=== PATIENT | female | born 1975 ===

== ENCOUNTER 2016-12-18 16:04 | Emergency (ER) | payer OTHER ==
[2016-12-18 16:22] VITALS: BP 168/110; RESP 16; O2SAT 98
[2016-12-18] MEDS ORDERED: Oxycodone/Acetaminophen 5/325 mg Tab PO STA (16:33)
--- NOTE | 2016-12-18 16:37 | ED PDOC ---
Arrival/HPI - General Historian: Patient - General Chief Complaint: Dental Pain Time Seen by Provider: 12/18/16 16:23 - History of Present Illness Narrative History of Present Illness (Text): 12/18/16 16:34 41yo female with no PMHx who present with complaint of left sided upper toothache x 2days. States swelling started today. She notes that she had root canal on the same tooth a year ago. States she couldn't get appointment with her Dentist today. Denies fever, chills, any other complaint. (Hardeep Deluna) Past Medical History - Provider Review Nursing Documentation Reviewed: Yes - Infectious Disease Hx of Infectious Diseases: None - Reproductive Menopause: No - Cardiac Hx Hypertension: Yes - Psychiatric Hx Substance Use: No Family/Social History - Physician Review Nursing Documentation Reviewed: Yes Family/Social History: Unknown Family HX Smoking Status: Unknown If Ever Smoked Hx Alcohol Use: No Hx Substance Use: No Allergies/Home Meds Allergies/Adverse Reactions: Allergies No Known Allergies Allergy (Verified 12/18/16 16:23) Review of Systems - Physician Review All systems were reviewed & negative as marked: Yes - Review of Systems Constitutional: Normal Eyes: Normal ENT: Other (Toothache) Respiratory: Normal Cardiovascular: Normal Gastrointestinal: Normal Genitourinary Female: Normal Musculoskeletal: Normal Skin: Normal Neurological: Normal Endocrine: Normal Hemo/Lymphatic: Normal Psychiatric: Normal Physical Exam Vital Signs Reviewed: Yes Temperature: Afebrile Blood Pressure: Hypertensive Pulse: Regular Respiratory Rate: Normal Appearance: Positive for: Well-Appearing, Non-Toxic, Comfortable Pain Distress: None Mental Status: Positive for: Alert and Oriented X 3 - Systems Exam Head: Present: Atraumatic, Normocephalic Pupils: Present: PERRL Extroacular Muscles: Present: EOMI Conjunctiva: Present: Normal Mouth: Present: Moist Mucous Membranes. No: Normal Teeth (Left upper molar tooth noted with surrounding gingival swelling and overlaying swelling of the cheek) Neck: Present: Normal Range of Motion Respiratory/Chest: Present: Clear to Auscultation, Good Air Exchange. No: Respiratory Distress, Accessory Muscle Use Cardiovascular: Present: Regular Rate and Rhythm, Normal S1, S2. No: Murmurs Abdomen: Present: Normal Bowel Sounds. No: Tenderness, Distention, Peritoneal Signs Back: Present: Normal Inspection Upper Extremity: Present: Normal Inspection. No: Cyanosis, Edema Lower Extremity: Present: Normal Inspection. No: Edema Neurological: Present: GCS=15, CN II-XII Intact, Speech Normal Skin: Present: Warm, Dry, Normal Color. No: Rashes Psychiatric: Present: Alert, Oriented x 3, Normal Insight, Normal Concentration Vital Signs Temp Pulse Resp BP Pulse Ox 12/18/16 16:52 16 98 12/18/16 16:36 99.0 F 99 H 16 98 12/18/16 16:17 99 F 90 16 168/110 H 98 Medical Decision Making ED Course and Treatment: 12/18/16 16:43 I was available for consultation during PA evaluation. The chart was reviewed by me, and I agree with disposition. The documented history was done by the physician securities sales associate. The documented physical exam was done by the physician securities sales associate. The documented procedures were done by the physician securities sales associate. ( Elias Magana) 12/18/16 23:32 Pt in ED for stated history. Her VS improved in ED s/p medication. She was DC home with amoxicillin, Percocet and Ibuprofen. she have a Dentist and was referred to her Dentist. (Hardeep Deluna) - Medication Orders Current Medication Orders: Discontinued Medications Amoxicillin (Amoxil 500 Mg Cap) 500 mg PO STAT STA PRN Reason: Protocol Stop: 12/18/16 16:34 Last Admin: 12/18/16 16:50 Dose: 500 mg Ketorolac Tromethamine (Toradol) 60 mg IM STAT STA Stop: 12/18/16 16:34 Last Admin: 12/18/16 16:50 Dose: 60 mg Oxycodone/Acetaminophen (Percocet 5/325 Mg Tab) 1 tab PO STAT STA Stop: 12/18/16 16:34 Last Admin: 12/18/16 16:50 Dose: 1 tab Disposition/Present on Arrival - Present on Arrival Any Indicators Present on Arrival: No History of DVT/PE: No History of Uncontrolled Diabetes: No Urinary Catheter: No History of Decub. Ulcer: No History Surgical Site Infection Following: None - Disposition Have Diagnosis and Disposition been Completed?: Yes Disposition Time: 16:40 Patient Plan: Discharge - Disposition Diagnosis: Dental abscess Disposition: HOME/ ROUTINE Condition: STABLE Discharge Instructions (ExitCare): Dental Abscess (ED) Additional Instructions: Follow up with a Dentist Return to ED for any new or worsening symptoms Prescriptions: Amoxicillin 500 mg PO TID #21 tab Ibuprofen [Motrin Tab] 600 mg PO Q6 #20 tab oxyCODONE/Acetaminophen [Percocet 5/325 mg Tab] 1 tab PO Q6 #7 tab Referrals: Rico Lara DMD [Staff Provider] - Follow up with primary
[2016-12-18 16:40] VITALS: PULSE 99; TEMP 99
== END 2016-12-18 16:52 | disposition home or self-care (01) ==
LOC: ED 16:04
DX: K04.7 Periapical abscess without sinus (principal)
CPT/HCPCS: 96372; 99282; J1885

== ENCOUNTER 2017-06-06 13:17 | Emergency (ER) | payer MEDICAID ==
[2017-06-06 13:29] VITALS: BMI 27.8
[2017-06-06 14:28] LABS: URINE BILIRUBIN NEGATIVE (NEGATIVE); URINE BLOOD LARGE (NEGATIVE); URINE GLUCOSE (UA) NEGATIVE (NEGATIVE); URINE KETONE NEGATIVE (NEGATIVE); URINE LEUKOCYTE ESTERASE SMALL Leu/uL (NEGATIVE); URINE PROTEIN 100 mg/dL (<30 mg/dL); URINE UROBILINOGEN 0.2 E.U./dL (<1 E.U./dL)
[2017-06-06 14:36] LABS: URINE APPEARANCE SLIGHT-CLOUDY (CLEAR); URINE COLOR DARK YELLOW (YELLOW)
[2017-06-06 14:37] LABS: URINE AMORPHOUS SEDIMENT SMALL; URINE BACTERIA TRACE (NEG); URINE RBC TNTC /hpf (0-2)
[2017-06-06] MEDS ORDERED: cefTRIAXone (Rocephin) 250 mg Inj IM STA (15:32)
--- NOTE | 2017-06-06 15:35 | ED PDOC ---
Arrival/HPI - General Chief Complaint: Abdominal Pain Time Seen by Provider: 06/06/17 13:59 Historian: Patient - History of Present Illness Narrative History of Present Illness (Text): 06/06/17 18:46 Patient complains of 2 week history of constant nonradiating R suprapubic pain worse during intercourse. Patient states that she had an IUD placed 1 week ago by her SOCIAL SERVICE ASSISTANT, since then has not been sexually active, reports that she is having vaginal bleeding after IUD insertion, which she was told is normal. Otherwise: ( -) nauea / vomiting, (-) diarrhea, (-) urinary symptoms, (-) fever, (-) vaginal d/c, (-) melena, (-) hematochezia. Has no history of prior abdominal surgery. PMD Santosh Past Medical History - Provider Review Nursing Documentation Reviewed: Yes - Infectious Disease Hx of Infectious Diseases: None - Cardiac Hx Hypertension: Yes - Psychiatric Hx Substance Use: No - Surgical History Other/Comment: IUD placement - Anesthesia Hx Anesthesia: No Family/Social History - Physician Review Nursing Documentation Reviewed: Yes Family/Social History: Unknown Family HX Smoking Status: Unknown If Ever Smoked Hx Alcohol Use: No Hx Substance Use: No Allergies/Home Meds Allergies/Adverse Reactions: Allergies No Known Allergies Allergy (Verified 06/06/17 13:28) Review of Systems - Review of Systems Constitutional: Normal. absent: Fatigue, Weight Change, Fevers Respiratory: Normal. absent: SOB, Cough, Sputum Cardiovascular: Normal. absent: Chest Pain, Palpitations, Edema Gastrointestinal: Normal, Abdominal Pain, Stool Changes (for the past 3 months having loose stools). absent: Constipation, Nausea, Vomiting, Appetite Changes Genitourinary Female: Normal, Vaginal Bleeding. absent: Dysuria, Frequency, Hematuria, Vaginal Discharge Skin: Normal. absent: Rash, Pruritis, Skin Lesions Physical Exam - Physical Exam Narrative Physical Exam (Text): 06/06/17 18:50 GENERAL APPEARANCE: Patient is awake, alert, oriented x 3, in no acute distress. SKIN: Warm, dry; (-) cyanosis. EYES: (-) conjunctival pallor, (-) scleral icterus. ENMT: Mucous membranes moist. NECK: (-) tenderness, (-) stiffness, (-) lymphadenopathy. CHEST AND RESPIRATORY: (-) rales, (-) rhonchi, (-) wheezes; breath sounds equal bilaterally. HEART AND CARDIOVASCULAR: (-) irregularity; (-) murmur, (-) gallop. ABDOMEN AND GI: (-) distention. Bowel sounds active; (+) minimal tenderness in the R pelvic area, (-) guarding, (-) rebound, (-) palpable masses, (-) CVA tenderness. PELVIC: normal external genitalia, (-) vaginal discharge, (+) mild vaginal bleeding from closed cervical os with (+) string of IUD noted to be in place, (- ) CMT tenderness, (-) pelvic tenderness, (+) mild R adnexal tenderness, (-) mass. A female RN, was present during the entire exam. EXTREMITIES: (-) deformity, (-) edema, (+) distal pulses. NEURO AND PSYCH: Mental status as above; (-) focal findings. Vital Signs Temp Pulse Resp BP Pulse Ox 06/06/17 15:59 98 F 75 20 122/75 100 06/06/17 15:00 78 18 138/75 99 06/06/17 13:31 98.0 F 84 17 140/83 99 Medical Decision Making ED Course and Treatment: 06/06/17 18:53 42 yo F s/p IUD placement 1 week ago, c/o 2 week history of constant nonradiating R suprapubic pain worse during intercourse. Based on history and exam, patient likely has PID. Plan : - UA - Urine cx - Uhcg - Rocephin IM 250 mg Uhcg (-). UA shows evidence of possible mild UTI, cx sent and pending. Patient given Rx for doxycycline, advised that plan will be to wait for urine cx, prior to giving any further antibiotics at this time as the UA may be contaminated. Advised to follow up with coupon and bond collection clerk in 1-2 days without fail. Advised to take medication as prescribed. Return to the emergency room at any time for any new or worsening symptoms. Patient states she fully agrees with and understands discharge instructions. States that she agrees with the plan and disposition. Verbalized and repeated discharge instructions and plan. I have given the patient opportunity to ask any additional questions. - Lab Interpretations Lab Results: Lab Results 06/06/17 14:22: Urine Color Dark yellow, Urine Appearance Slight-cloudy, Urine pH 7.0, Ur Specific [place] 1.020, Urine Protein 100 H, Urine Glucose (UA) Negative, Urine Ketones Negative, Urine Blood Large H, Urine Nitrate Negative, Urine Bilirubin Negative, Urine Urobilinogen 0.2, Ur Leukocyte Esterase Small H , Urine RBC Tntc, Urine WBC 5 - 10, Ur Epithelial Cells 3 - 4, Amorphous Sediment Small, Urine Bacteria Trace - Medication Orders Current Medication Orders: Discontinued Medications Ceftriaxone Sodium (Rocephin) 250 mg IM STAT STA PRN Reason: Protocol Stop: 06/06/17 15:33 Last Admin: 06/06/17 15:45 Dose: 250 mg IM Administration Charges Document 06/06/17 15:45 GMI (Rec: 06/06/17 15:46 GMI [id number]) Injection Site MAR Injection Site Right Gluteus Adi Charges for Administration # of IM Administrations 1 - PA / PROTECTION OFFICER / Resident Statement / has reviewed & agrees with the documentation as recorded. Disposition/Present on Arrival - Present on Arrival Any Indicators Present on Arrival: No History of DVT/PE: No History of Uncontrolled Diabetes: No Urinary Catheter: No History of Decub. Ulcer: No History Surgical Site Infection Following: None - Disposition Have Diagnosis and Disposition been Completed?: Yes Diagnosis: PID (acute pelvic inflammatory disease) Disposition: HOME/ ROUTINE Disposition Time: 15:33 Patient Plan: Discharge Condition: STABLE Discharge Instructions (ExitCare): Pelvic Inflammatory Disease (ED) Print Language: BELGIAN Additional Instructions: Thank you for letting us take care of you today. You were treated for PID. The emergency medical care you received today was directed at your acute symptoms. If you were prescribed any medication, please fill it and take as directed. It may take several days for your symptoms to resolve. Return to the Emergency Department if your symptoms worsen, do not improve, or if you have any other problems. Please contact your coupon and bond collection clerk doctor in 2 days for re-evaluation and follow up. Bring any paperwork you were given at discharge with you along with any medications you are taking to your follow up visit. Our treatment cannot replace ongoing medical care by a primary care provider (PCP) outside of the emergency department. Thank you for allowing the [facility] team to be part of your care today. If you had a urine, or wound culture: It will take several days for the results , if any change in treatment is needed we will contact you. Prescriptions: Doxycycline Hyclate 100 mg PO BID #28 capsule Forms: [employer] (Arabic), WORK NOTE
[2017-06-06 16:00] VITALS: BP 122/75; PULSE 75; RESP 20; TEMP 98; O2SAT 100
== END 2017-06-06 16:08 | disposition home or self-care (01) ==
LOC: ED 13:17
DX: N73.9 Female pelvic inflammatory disease, unspecified (principal)
CPT/HCPCS: 81001; 87086; 87491; 87591; 96372; 99283; J0696

== ENCOUNTER 2017-10-18 09:41 | Emergency (ER) | payer MEDICAID ==
[2017-10-18 09:42] VITALS: BMI 27.8
[2017-10-18 10:40] VITALS: RESP 18
--- NOTE | 2017-10-18 11:39 | ED PDOC ---
Arrival/HPI - General Chief Complaint: ENT Problem Time Seen by Provider: 10/18/17 11:35 Historian: Patient - History of Present Illness Narrative History of Present Illness (Text): 10/18/17 11:36 A 42 year old female, whose past medical history includes hypertension, presents to the emergency department complaining of areas of swelling and pain behind bilateral ears. Patient is primarily Setswana speaking, history obtained through scribe. Patient reports she developed a lump behind the left ear 3 days ago and another behind her right 2 days ago. She notes associated headache, dizziness at times. Patient denies any fever, chills, congestion, sore throat, abdominal pain, chest pain, shortness of breath, cough or any other complaints. PMD: Non-[facility] provider Time/Duration: Other (3 days) Symptom Course: Unchanged Context: Home Past Medical History - Provider Review Nursing Documentation Reviewed: Yes - Infectious Disease Hx of Infectious Diseases: None - Reproductive Menopause: No - Cardiac Hx Hypertension: Yes - Psychiatric Hx Substance Use: No - Surgical History Other/Comment: IUD placement - Anesthesia Hx Anesthesia: No Family/Social History - Physician Review Nursing Documentation Reviewed: Yes Family/Social History: No Known Family HX Smoking Status: Unknown If Ever Smoked Hx Alcohol Use: No Hx Substance Use: No Allergies/Home Meds Allergies/Adverse Reactions: Allergies No Known Allergies Allergy (Verified 06/06/17 13:28) Home Medications: Home Meds Medication Instructions Recorded Confirmed Terbinafine HCl [Lamisil] 250 mg PO DAILY 10/18/17 10/18/17 Review of Systems - Physician Review All systems were reviewed & negative as marked: Yes - Review of Systems Constitutional: absent: Fevers, Night Sweats ENT: absent: TMJ Pain, Sore Throat, Sinus Congestion Respiratory: absent: SOB, Cough Cardiovascular: absent: Chest Pain Gastrointestinal: Nausea. absent: Abdominal Pain, Constipation, Diarrhea, Appetite Changes Musculoskeletal: absent: Back Pain, Neck Pain Skin: Other (swollen painful lumps behind bilateral ears) Neurological: Headache, Dizziness Physical Exam Vital Signs Reviewed: Yes Vital Signs Temp Pulse Resp BP Pulse Ox 10/18/17 14:00 98.2 F 75 18 128/69 98 10/18/17 12:25 79 18 131/71 97 10/18/17 11:11 85 18 138/76 97 10/18/17 10:00 98.5 F 90 18 142/88 99 Temperature: Afebrile Blood Pressure: Normal Pulse: Regular Respiratory Rate: Normal Appearance: Positive for: Well-Appearing, Non-Toxic, Comfortable Pain Distress: None Mental Status: Positive for: Alert and Oriented X 3 - Systems Exam Head: Present: Atraumatic, Tenderness (over and slightly abover mastoid process bilaterally. no erythema), Swelling (over and slightly abover mastoid process) . No: Ecchymosis, Abrasion Pupils: Present: PERRL Extroacular Muscles: Present: EOMI Conjunctiva: Present: Normal Ears: Present: Normal, NORMAL TM, Normal Canal. No: Erythema, TM Bulging, Fluid , TM Perf Mouth: Present: Moist Mucous Membranes Pharnyx: Present: Normal. No: ERYTHEMA, EXUDATE, TONSILS ENLARGED Nose (External): Present: Atraumatic Nose (Internal): Present: Normal Inspection Neck: Present: Normal Range of Motion, Trachea Midline. No: Meningeal Signs, MIDLINE TENDERNESS, Paraspinal Tenderness, Lymphadenopathy Respiratory/Chest: Present: Clear to Auscultation, Good Air Exchange. No: Respiratory Distress, Accessory Muscle Use Cardiovascular: Present: Regular Rate and Rhythm, Normal S1, S2. No: Murmurs Abdomen: No: Tenderness, Distention Upper Extremity: Present: Normal Inspection Lower Extremity: Present: Normal Inspection Neurological: Present: GCS=15, Speech Normal, Motor Func Grossly Intact Skin: Present: Warm, Dry, Normal Color Psychiatric: Present: Alert, Oriented x 3 Medical Decision Making ED Course and Treatment: 10/18/17 11:36 Impression: A 42 year old female with areas of swelling and pain behind bilateral ears. Patient notes headache. Plan: -- Head CT -- Reassess and disposition Progress Notes: Head CT; FINDINGS: HEMORRHAGE: No intracranial hemorrhage. BRAIN: No mass effect or edema. No atrophy or chronic microvascular ischemic changes. VENTRICLES: Unremarkable. No hydrocephalus. CALVARIUM: Unremarkable. PARANASAL SINUSES: Unremarkable as visualized. No significant inflammatory changes. MASTOID AIR CELLS: Unremarkable as visualized. No inflammatory changes. OTHER FINDINGS: None. IMPRESSION: No evidence of acute intracranial hemorrhage intracranial collection mass effect or midline shift. No CT evidence of mastoiditis or sinusitis. 10/18/17 14:08 pt given toradol for pain pt reassessment; pt is non toxic well appearing; no distress. stable vitals. ambulating with steady gait. on cell phone; no distress. will cover patient with bactrim and keflex for possible early abscess vs periauricular lymphadenopathy; will have patient f/u with PMD. advised immediate return if symptoms worsen,persist or if new symptoms develop. Patient verbalizes understanding of discharge instructions and need for immediate followup. all aspects of this case were discussed the attending of record. Impression:lymphadenopathy, possible early abscess Motrin every 6 hours as needed for pain Bactrim 1 tablet twice daily 7 days Keflex 4 times daily 7 days Follow-up with primary care physician within the next 2 days Follow-up with ENT specialist within the next 2 days Return immediately if symptoms worsen persist or if new concerning symptoms develop Reassessment Condition: Re-examined, Improved - RAD Interpretation Radiology Orders: 10/18/17 11:35 HEAD W/O CONTRAST [CT] Stat - Medication Orders Current Medication Orders: Discontinued Medications Cephalexin Monohydrate (Keflex) 500 mg PO STAT STA PRN Reason: Protocol Stop: 10/18/17 13:14 Last Admin: 10/18/17 13:37 Dose: 500 mg Ketorolac Tromethamine (Toradol) 60 mg IM STAT STA Stop: 10/18/17 13:13 Last Admin: 10/18/17 13:37 Dose: 60 mg MAR Pain Assessment Document 10/18/17 13:37 EQ (Rec: 10/18/17 13:37 EQ [id number]) Pain Reassessment Is this a pain reassessment? No Sleep Is patient sleeping during reassessment? No Presence of Pain Presence of Pain Yes IM Administration Charges Document 10/18/17 13:37 EQ (Rec: 10/18/17 13:37 EQ [id number]) Charges for Administration # of IM Administrations 1 Trimethoprim/Sulfamethoxazole (Bactrim Ds Tab) 1 tab PO STAT STA PRN Reason: Protocol Stop: 10/18/17 13:14 Last Admin: 10/18/17 13:37 Dose: 1 tab - Scribe Statement The provider has reviewed the documentation as recorded by the Scribe Desi Tiwari Provider Scribe Attestation: All medical record entries made by the Scribe were at my direction and personally dictated by me. I have reviewed the chart and agree that the record accurately reflects my personal performance of the history, physical exam, medical decision making, and the department course for this patient. I have also personally directed, reviewed, and agree with the discharge instructions and disposition. Disposition/Present on Arrival - Present on Arrival Any Indicators Present on Arrival: No History of DVT/PE: No History of Uncontrolled Diabetes: No Urinary Catheter: No History of Decub. Ulcer: No History Surgical Site Infection Following: None - Disposition Have Diagnosis and Disposition been Completed?: Yes Diagnosis: Lymphadenopathy, Lymphadenitis Disposition: HOME/ ROUTINE Disposition Time: 14:16 Patient Plan: Discharge Condition: GOOD Additional Instructions: Motrin every 6 hours as needed for pain Bactrim 1 tablet twice daily 7 days Keflex 4 times daily 7 days Follow-up with primary care physician within the next 2 days Follow-up with ENT specialist within the next 2 days Return immediately if symptoms worsen persist or if new concerning symptoms develop Prescriptions: Cephalexin [Keflex] 500 mg PO QID #28 capsule Ibuprofen [Motrin] 600 mg PO Q6H PRN #20 tab PRN Reason: pain/fever reduction Sulfamethoxazole/Trimethoprim [Bactrim DS 800 mg-160 mg] 1 tab PO BID #14 tab Referrals: Yarelis Frost MD [Primary Care Provider] - Follow up with primary Dallas Marroquin DO [[facility]] - Follow up with primary Forms: [employer] (Stateless), WORK NOTE
--- NOTE | 2017-10-18 12:42 | CT ---
PROCEDURE: CT HEAD WITHOUT CONTRAST. HISTORY: headache/ b/l ttp over mastoid process COMPARISON: None available. TECHNIQUE: Axial computed tomography images were obtained through the head/brain without intravenous contrast. Radiation dose: Total exam DLP = 851.47 mGy-cm. This CT exam was performed using one or more of the following dose reduction techniques: Automated exposure control, adjustment of the mA and/or kV according to patient size, and/or use of iterative reconstruction technique. FINDINGS: HEMORRHAGE: No intracranial hemorrhage. BRAIN: No mass effect or edema. No atrophy or chronic microvascular ischemic changes. VENTRICLES: Unremarkable. No hydrocephalus. CALVARIUM: Unremarkable. PARANASAL SINUSES: Unremarkable as visualized. No significant inflammatory changes. MASTOID AIR CELLS: Unremarkable as visualized. No inflammatory changes. OTHER FINDINGS: None. IMPRESSION: No evidence of acute intracranial hemorrhage intracranial collection mass effect or midline shift. No CT evidence of mastoiditis or sinusitis.
[2017-10-18] MEDS ORDERED: Tmp-Smz 800 mg-160 mg DS Tab PO STA (13:13)
[2017-10-18 14:00] VITALS: BP 128/69; PULSE 75; TEMP 98.2; O2SAT 98
== END 2017-10-18 14:36 | disposition home or self-care (01) ==
LOC: ED 09:41
DX: I88.9 Nonspecific lymphadenitis, unspecified (principal); I10 Essential (primary) hypertension
CPT/HCPCS: 70450; 96372; 99283; J1885

== ENCOUNTER 2018-01-19 16:01 | Emergency (ER) | payer MEDICAID ==
[2018-01-19 16:02] VITALS: BMI 27.8
[2018-01-19 16:28] VITALS: RESP 16; TEMP 98.7; O2SAT 100
[2018-01-19 17:15] LABS: URINE APPEARANCE SL CLOUDY (CLEAR); URINE BILIRUBIN NEGATIVE (NEGATIVE); URINE BLOOD LARGE (NEGATIVE); URINE COLOR YELLOW (YELLOW); URINE GLUCOSE (UA) NEGATIVE (NEGATIVE); URINE LEUKOCYTE ESTERASE TRACE Leu/uL (NEGATIVE); URINE PROTEIN NEGATIVE mg/dL (<30 mg/dL); URINE UROBILINOGEN 0.2 E.U./dL (<1 E.U./dL)
[2018-01-19 17:19] LABS: HCG,QUALITATIVE URINE NEGATIVE (NEGATIVE)
[2018-01-19 17:24] LABS: URINE BACTERIA FEW (NEG)
--- NOTE | 2018-01-19 17:26 | ED PDOC ---
Arrival/HPI - General Chief Complaint: Female Genitourinary Time Seen by Provider: 01/19/18 16:37 - History of Present Illness Narrative History of Present Illness (Text): 42 y/o F p/w 3 days of dysuria, increased urinary frequency, urinary urgency. She states feels the same as her UTI in the past and same location of abdominal pain. Denies fever, chills, nausea, vomiting, dyspnea. Past Medical History - Infectious Disease Hx of Infectious Diseases: None - Cardiac Hx Cardiac Disorders: Yes Hx Hypertension: Yes - Pulmonary Hx Respiratory Disorders: No - Neurological Hx Neurological Disorder: No - HEENT Hx HEENT Disorder: No - Renal Hx Renal Disorder: No - Endocrine/Metabolic Hx Endocrine Disorders: No - Hematological/Oncological Hx Blood Disorders: No - Integumentary Hx Dermatological Disorder: No - Musculoskeletal/Rheumatological Hx Musculoskeletal Disorders: No - Gastrointestinal Hx Gastrointestinal Disorders: No - Genitourinary/Gynecological Hx Genitourinary Disorders: No - Psychiatric Hx Psychophysiologic Disorder: No Hx Substance Use: No - Surgical History Other/Comment: IUD placement/REMOVED - Anesthesia Hx Anesthesia: No Family/Social History Family/Social History: No Known Family HX Smoking Status: Never Smoked Hx Alcohol Use: No Hx Substance Use: No Allergies/Home Meds Allergies/Adverse Reactions: Allergies No Known Allergies Allergy (Verified 01/19/18 16:21) Review of Systems - Physician Review All systems were reviewed & negative as marked: Yes - Review of Systems Constitutional: absent: Fevers Respiratory: absent: SOB Physical Exam - Physical Exam Narrative Physical Exam (Text): Gen: NAD Head: NC/AT Eyes: No icterus ENT: MMM Neck: Supple Chest: No tenderness CV: Regular rate Lungs: CTA b/l Abd: No suprapubic tenderness Back: No CVA tenderness Skin: No rash Extremities: No edema Neuro: Alert, no focal deficit Vital Signs Temp Pulse Resp BP Pulse Ox 01/19/18 16:22 98.7 F 82 16 137/88 100 Medical Decision Making ED Course and Treatment: UA positive for UTI. Will discharge on Macrobid, f/u primary care, instructed to return to ED for worsening pain, vomiting, fever, or any other problem. - Lab Interpretations Lab Results: Lab Results 01/19/18 17:04: Urine Color Yellow, Urine Appearance Sl cloudy, Urine pH 6.0, Ur Specific [place] 1.020, Urine Protein Negative, Urine Glucose (UA) Negative, Urine Ketones Negative, Urine Blood Large H, Urine Nitrate Negative, Urine Bilirubin Negative, Urine Urobilinogen 0.2, Ur Leukocyte Esterase Trace H, Urine RBC Pending, Urine WBC Pending, Urine HCG, Qual Pending Disposition/Present on Arrival - Present on Arrival Any Indicators Present on Arrival: No History of DVT/PE: No History of Uncontrolled Diabetes: No Urinary Catheter: No History of Decub. Ulcer: No History Surgical Site Infection Following: None - Disposition Have Diagnosis and Disposition been Completed?: Yes Diagnosis: UTI (urinary tract infection) Disposition: HOME/ ROUTINE Disposition Time: 17:26 Patient Plan: Discharge Condition: STABLE Discharge Instructions (ExitCare): Urinary Tract Infections in Adults Print Language: MALTESE Prescriptions: Nitrofurantoin Macrocrystals [Macrobid] 100 mg PO BID #20 cap Phenazopyridine [Pyridium] 1 tab PO Q8 #6 tab Referrals: Yarelis Frost MD [Primary Care Provider] - Follow up with primary
[2018-01-19 18:05] VITALS: BP 135/82; PULSE 85
== END 2018-01-19 17:53 | disposition home or self-care (01) ==
LOC: ED 16:01
DX: N39.0 Urinary tract infection, site not specified (principal); I10 Essential (primary) hypertension